=== PATIENT | male | born 1970 | race Caucasian/White ===

== ENCOUNTER 2019-02-18 08:27 | Emergency (ER) | payer OTHER ==
[~2019-02-18] VITALS: Ht 175.3 cm; Wt 99.8 kg
[2019-02-18 08:39] VITALS: BP 162/116
--- NOTE | 2019-02-18 08:43 | NUR ---
Patient transferred to bed 3 via wheelchair by tech.
--- NOTE | 2019-02-18 09:02 | NUR ---
Dr. Medrano is evaluating the patient at bedside.
--- NOTE | 2019-02-18 09:03 | NUR ---
Patient taken to XRAY via wheelchair by tech.
[2019-02-18] MEDS ORDERED: KETOROLAC 60 MG/2 ML VIAL IM ONE (09:20)
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
--- NOTE | 2019-02-18 10:30 | NUR ---
[facility] [employer] AT BEDSIDE TAKING REPORT FROM PATIENT.
--- NOTE | 2019-02-18 10:46 | NUR ---
Patient being evaluated by Dr. Medrano at bedside.
--- NOTE | 2019-02-18 10:46 | NUR ---
Dr. Medrano is evaluating the patient at bedside.
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
[2019-02-18] MEDS ORDERED: MORPHINE SULFATE 4 MG/ML SYR IM ONE (10:50)
--- NOTE | 2019-02-18 11:08 | NUR ---
PT GIVEN MORPHINE IM LT HIP FOR PAIN 09/23. POSITIONED FOR COMFORT. DAUGHTER AT BEDSIDE.
--- NOTE | 2019-02-18 11:20 | NUR ---
Placed a stirrup splint on PT's right ankle. Gave PT crutches proper for his height, he claims to have used crutches before in the past.
[2019-02-18 11:23] VITALS: BP 162/116
--- NOTE | 2019-02-18 11:23 | NUR ---
Patient discharged with v/s stable. Written and verbal after care instructions given and explained. Patient alert, oriented and verbalized understanding of instructions. Ambulatory with steady gait. All questions addressed prior to discharge. ID band removed. Patient advised to follow up with PMD. Rx of MOTRIN AND NORCO given. Patient educated on indication of medication including possible reaction and side effects. Opportunity to ask questions provided and answered.
== END 2019-02-18 11:23 | disposition home or self-care (01) ==
LOC: MED 08:27
DX: S82.891A Other fracture of right lower leg, initial encounter for closed fracture (principal); S20.212A Contusion of left front wall of thorax, initial encounter; Y09 Assault by unspecified means; Y93.89 Activity, other specified; Y92.89 Other specified places as the place of occurrence of the external cause; Y99.8 Other external cause status
CPT/HCPCS: 29515; 71101; 73610; 96372; 99283; J1885; J2270

== ENCOUNTER 2021-03-27 09:24 | Day surgery (SDC) | payer MEDICAID, SELFPAY ==
[~2021-03-27] VITALS: Ht 170.2 cm; Wt 99.8 kg
[2021-03-27] MEDS ORDERED: fentaNYL citrate 0.05 MG/ML VIAL ONE (11:21)
[2021-03-27] MEDS ORDERED: LIDOCAINE 2% 100 MG/5 ML UJET TP ONE (11:21)
[2021-03-27] MEDS ORDERED: MIDAZOLAM 5 MG/5 ML VIAL ONE (11:21)
[2021-03-27] MEDS ORDERED: fentaNYL citrate 0.05 MG/ML VIAL IVP ONE (11:45)
== END 2021-03-27 12:35 | disposition home or self-care (01) ==
LOC: MDS 09:24 → MMU 09:25 → MDS 12:35
PROVIDERS: ATTEND Internal Medicine Gastroenterology
DX: Z12.11 Encounter for screening for malignant neoplasm of colon (principal); K64.8 Other hemorrhoids; K75.81 Nonalcoholic steatohepatitis (NASH); E66.9 Obesity, unspecified; I10 Essential (primary) hypertension; E11.9 Type 2 diabetes mellitus without complications; E78.00 Pure hypercholesterolemia, unspecified; Z79.84 Long term (current) use of oral hypoglycemic drugs; Z79.899 Other long term (current) drug therapy; Z20.822 Contact with and (suspected) exposure to COVID-19
CPT/HCPCS: 45378; 87426; J3010; J2250